=== PATIENT | male | born 1955 | race Caucasian/White ===

== ENCOUNTER 2018-02-27 13:26 | Emergency (ER) | payer OTHER ==
[~2018-02-27] VITALS: Ht 180.3 cm; Wt 65.8 kg
[~2018-02-27 13:26] MED LIST: CARISOPRODOL 3350 MG PO; CIPRODEX OTIC7.5 ML OT; FLEXERIL PO; FLONASE 0.05%50 MCG NS; IBUPROFEN 800800 M1 PO; LORATIDINE 10 M10 M1 PO; NAPROSYN500 MG PO; NORCO 5-325 TA1 EACH PO
[2018-02-27] MEDS ORDERED: DEPRESSION MED (13:48)
[2018-02-27] MEDS ORDERED: HTN MED (13:49)
[2018-02-27] MEDS ORDERED: MOBIC15 MG PO (15:08)
[2018-02-27 15:46] VITALS: BP 148/64
== END 2018-02-27 16:03 | disposition home or self-care (01) ==
LOC: M.ERS 13:26
DX: M25.551 Pain in right hip (principal); I10 Essential (primary) hypertension; F32.9 Major depressive disorder, single episode, unspecified